=== PATIENT | male | born 1970 | race Caucasian/White ===

== ENCOUNTER → 2021-06-23 09:53 | Outpatient (CLI) | payer SELFPAY ==
--- NOTE | 2021-06-23 10:00 | CT_ITS ---
STUDY: CT CHEST WITHOUT CONTRAST REASON FOR EXAM: Male, 51 years old. DYSPNEA RADIATION DOSAGE (If Supplied By Facility): CTDIvol = ( 20.15 ) mGy, DLP = ( 712.48 ) mGycm TECHNIQUE: Transaxial imaging was performed without the administration of intravenous contrast material. Multiplanar coronal and sagittal images were reformatted. Individualized dose optimization techniques were used for this CT. COMPARISON: None. FINDINGS: Compressive atelectasis of the right more than left lower lobes. No cavitating process. No discrete pulmonary nodule in the aerated segments of the lungs. Scattered mosaic attenuation multiple pulmonary lobes with mild interstitial thickening. No pneumothorax. There are a few scattered pulmonary calcified granulomata. Heart is mildly enlarged. Calcified right hilar lymph nodes. Reactive appearing lymph nodes of the mediastinum. There is prominence of the pulmonary hilar arteries and peripheral pulmonary arteries, consistent with congestive heart failure (CHF). There is atherosclerotic tortuosity of the aortic arch and descending thoracic aorta. There are multi-level degenerative changes of the thoracic spine. Calcified granulomata of the spleen. CT/Chest without Contrast IMPRESSION: 1. CHF with interstitial edema and right larger than left pleural effusions. 2. Compressive atelectasis of the right more than left lung base. Electronically Signed: Jesus Alberto Mayorga MD ([facility]) at 18:21 EDT , Service support ,
== END ==
PROVIDERS: PCP Family Medicine; Referring Provider Internal Medicine Pulmonary Disease; Visit Provider Internal Medicine Pulmonary Disease
DX: R06.00 Dyspnea, unspecified (principal); U07.1 COVID-19; R09.02 Hypoxemia
CPT/HCPCS: 71250

== ENCOUNTER → 2021-07-26 08:27 | Outpatient (CLI) | payer SELFPAY ==
--- NOTE | 2021-07-26 09:05 | ECHOCS_ITS ---
Reason For Study: DYSPNEA Procedure This was a 2D Doppler, Color Flow transthoracic echocardiogram. The exam was of poor technical quality due to body habitus. Exam performed in department. Left Ventricle Normal LV size. The estimated ejection fraction is 35 %. There is evidence of diastolic dysfunction. Hypokinesis of the lateral wall, inferior wall and apex. Right Ventricle Normal RV size. Normal systolic function. Atria Normal left atrium. Normal right atrium. No doppler evidence for ASD. Mitral Valve There is no mitral valve stenosis. No mitral valve insufficiency. Tricuspid Valve There is no tricuspid stenosis. Trivial tricuspid valve insufficiency. Pulmonary artery systolic pressure is 60-65 mmHg. Aortic Valve Trisinus/trileaflet aortic valve. There is no aortic stenosis. No aortic valve insufficiency. Pulmonic Valve There is no pulmonic valvular stenosis. No pulmonic valve insufficiency. Great Vessels Normal aortic root. Pericardium/Pleural No pericardial effusion. Medication 22 gauge I.V. with prn adaptor inserted into left arm. Diluted definity 6.0ml given slow IV push to enhance endocardial definition. MMode/2D Measurements & Calculations LVIDd: 6.8 cm IVSd: 0.77 cm Ao root diam: 4.3 cm LVIDs: 5.5 cm LVPWd: 0.84 cm RVDd: 4.8 cm FS: 18.1 % LAV(MOD-bp): 70.7 ml LA A4 area: 24.5 cm2 LA dimension(2D): 5.3 cm LAV(MOD-bp) Indexed: 25.4 ml/m2 LAV(MOD-sp2): 67.4 ml LAV(MOD-sp4): 68.9 ml RA A4 area: 30.0 cm2 Doppler Measurements & Calculations MV E max elieser: 109.3 cm/sec Lat Peak E' Elieser: 5.9 cm/sec Med Peak E' Elieser: 7.2 cm/sec MV A max elieser: 45.4 cm/sec E/E' lat: 18.4 E/E' med: 15.3 MV E/A: 2.4 Ao V2 max: 107.9 cm/sec LV V1 max: 62.0 cm/sec TR max elieser: 377.2 cm/sec Ao max P.7 mmHg LV V1 max P.5 mmHg TR max P.9 mmHg ECHO/Echo Complete W/ Contrast Interpretation Summary The estimated ejection fraction is 35 %. Hypokinesis of the lateral wall, inferior wall and apex Pulmonary artery systolic pressure is 60-65 mmHg. Ordering Physician: Dima Coreas Referring Physician: MARTHA HANNAH Performed By: Zahida Weinstein, RDCS, RVT
[2021-07-26 09:51] LABS: Erythrocyte Sedimentation Rate 2 mm/hr (0-20)
[2021-07-26 09:59] LABS: BNP,B-Type NATRIURETIC PEPTIDE 336.6 pg/mL (0-100)
[2021-07-26 10:02] LABS: CRP < 2.90 mg/L (0.0-3.0); Rheumatoid Factor < 10.0 IU/mL (<15)
[2021-07-27 14:27] LABS: Angiotensin Convert Enzyme 22 U/L (14-82); Anti-dsDNA Ab <1 IU/mL (0-9)
== END ==
PROVIDERS: PCP Family Medicine; Visit Provider Internal Medicine Pulmonary Disease
DX: I27.20 Pulmonary hypertension, unspecified (principal); R06.00 Dyspnea, unspecified
CPT/HCPCS: 36415; 82164; 83880; 85652; 86140; 86225; 86431; 93306; Q9957; A4216; C8929; J3490

== ENCOUNTER 2024-04-14 11:16 | Emergency (ER) | payer OTHER, SELFPAY ==
[2024-04-14 11:18] VITALS: BP 146/105; PULSE 83; RESP 18; TEMP 36; O2SAT 98; BMI 43.6
--- NOTE | 2024-04-14 11:33 | CT_ITS ---
STUDY: CT ABDOMEN AND PELVIS WITHOUT CONTRAST REASON FOR EXAM: Male, 54 years old. Kidney Stone. Burning with urination. RADIATION DOSAGE (If Supplied By Facility): CTDIvol = ( 23.36 ) mGy, DLP = ( 1225.60 ) mGycm TECHNIQUE: Transaxial images were obtained from the dome of the diaphragm to the symphysis pubis without oral contrast, and without intravenous contrast. Sagittal and coronal images were reconstructed. Individualized dose optimization techniques were used for this CT. COMPARISON: Comparison is made with prior CT scan of the chest dated June 23, 2021. FINDINGS: There is evidence of a small left pleural effusion with a fibrocalcific changes at the left lung base in the posterior medial segment with evidence of bronchiectasis. This most likely represents chronic fibrosis. No significant coronary calcification is seen. There is a diffuse contour abnormality of the liver consistent with cirrhotic changes. I suspect small gallstones along the dependent portion of the gallbladder lumen. There are multiple benign calcified granulomata of the spleen. Normal pancreas. Normal bilateral adrenal glands. There is a 4 cm x 5.1 semi a cyst in the lateral aspect of the right kidney. Tiny nonobstructive left intrarenal calculi. Normal visualized stomach. Normal small intestine. Normal colon. The appendix is visualized and appears normal. There is scattered atherosclerotic calcification of the abdominal aorta, without a demonstrated aneurysm. Normal inferior vena cava. Normal retroperitoneum. The bladder is contracted. Mild degree of diffuse bladder wall thickening. Normal abdominal wall. There are degenerative changes of the visualized lumbar spine. CT/Abdomen/Pelvis without Cont IMPRESSION: Right renal cyst. Nonobstructive left intrarenal calculi. Chronic scarring at the left lung base. Nodular contour of the liver suggestive of cirrhotic change. I suspect small gallstones along the dependent portion of the gallbladder lumen. Electronically Signed: Vernon Mcclellan MD at 12:21 EDT ,
[2024-04-14] MEDS: Ondansetron 4 MG/2 ML Vial IV (11:44)
[2024-04-14] MEDS: Ketorolac 30 MG/ML Syringe IV (11:44)
--- NOTE | 2024-04-14 11:48 | EX.ED.DYSGE1 ---
HPI History of Present Illness Chief Complaint: Abd Pain Informant: patient and family Narrative Narrative: Very pleasant 54-year-old male presenting to the emergency room with a chief complaint of flank pain. Patient states that yesterday morning he developed some nausea and bloating feeling. He states that he felt some discomfort in the right flank as the day went on. He is able to go to bed and would have some. Sure he felt okay. This morning symptoms returned and he did have some emesis after eating. Found that if he laid back in his recliner it would bother him more. He denies any known history of kidney stones. He notes a history of diabetes. Patient notes his father had kidney stones. He denies any testicular pain, dysuria or frequency. He had a normal bowel movement this morning. PFSH PFS Medical History Diabetes Hypertension Home Medications ?Medication ?Instructions ?Recorded ?Last Taken ?Type ondansetron 4 mg disintegrating 4 mg PO Q6H PRN PRN Nausea #10 tabs 04/14/24 Unknown Rx tablet oxycodone-acetaminophen 5 mg-325 1 tab PO Q6H PRN pain 3 days #12 04/14/24 Unknown Rx mg tablet (Percocet) tabs tamsulosin 0.4 mg capsule (Flomax) 0.4 mg PO QHS #7 caps 04/14/24 Unknown Rx Allergy/AdvReac Type Severity Reaction Status Date / Time No Known Allergies Allergy Verified 04/14/24 11:17 Social History Smoking Status: Never smoker ROS ROS ED Constitutional Constitutional ED: Denies chills, fever(s) or weight loss Eyes Eyes: Denies change in vision or diplopia ENT ENT ED: Denies ear pain, rhinorrhea or sore throat Cardiovascular Cardiovascular: Denies chest pain, orthopnea, palpitations or racing heartbeat Respiratory/Chest Respiratory/Chest: Denies cough, dyspnea or orthopnea Gastrointestinal Gastrointestinal: Reports nausea and vomiting; Denies abdominal pain or diarrhea Genitourinary Genitourinary ED: Denies dysuria, hematuria or urinary frequency Musculoskeletal Musculoskeletal: Reports back pain; Denies arthralgias or myalgias Integumentary Denies abscess or rash Neurologic Neurologic: Denies headache(s) or weakness Psychiatric Psychiatric: Denies anxiety, depression, suicidal ideation or suicidal thoughts Endocrine Endocrinology: Denies polydipsia, polyphagia or polyuria Allergic/Immunologic Allergic/Immunologic ED: Denies mouth swelling, tongue swelling or urticaria EXAM Physical Exam Const Vital Signs: 04/14/24 11:18 04/14/24 13:17 04/14/24 13:56 Temperature 96.8 F L 96.8 F L Temperature Source Temporal Pulse Rate 83 74 74 Respiratory Rate 18 16 16 Blood Pressure 146/105 H 137/83 H 137/83 H Blood Pressure Mean 118 101 101 Pulse Ox 98 97 97 Oxygen Delivery Method Room Air Room Air Positive well nourished and well developed General Appearance ED: well developed HEENT Reports normocephalic, head/scalp atraumatic and moist mucous membranes Eyes PERRL and EOMs intact bilaterally Neck no lymphadenopathy, supple and no JVD Resp normal respiratory effort and clear to auscultation bilaterally Cardio regular rate, regular rhythm and no murmurs GI normal to inspection, nondistended, normoactive bowel sounds and non-tender Palpation: soft Back/Spine no CVA tenderness and normal ROM Extremity normal to inspection General Extremety ED: Negative for edema General Extremity: Negative for edema Neuro oriented x3 and CN's II-XII intact bilaterally Sensorium / Orientation: alert Motor Exam: strength 5/5 throughout Psych mental status grossly normal Mood & Affect: Negative for depressed or tearful Skin no rashes or lesions noted and no wounds MDM MDM MDM Narrative Medical decision making narrative: Differential diagnosis includes but not limited to UTI pyelonephritis appendicitis colitis ureterolithiasis White count 12.1 hemoglobin 12.4 platelet count is 143. Creatinine 1.78. I do not have a clear baseline for him. BUN is noted to be 31 normal sodium and potassium and anion gap 5 CO2 30. Liver lipase normal urinalysis negative. CT of the abdomen pelvis demonstrates a proximal ureteral stone on the right with some mild hydronephrosis. There is a right renal cyst. There is a possible gallstone. He is not tender in the right upper quadrant and again liver enzymes and lipase are normal. Clinically believe this to be related to his kidney stone in the proximal portion of the right ureter. I will write for some Tymlos and Percocet and Zofran. I have asked that he follow-up with urology. He is to return if worsening or concerns History & Record Review Discussion w/independent historian: Patient and Significant other Lab Data Attestation: I reviewed the patient's lab results. Labs: Laboratory Results - last 24 hr 04/14/24 04/14/24 11:47 12:11 WBC 12.1 H RBC 4.02 L Hgb 12.4 L Hct 37.8 L MCV 94.0 MCH 30.8 MCHC 32.8 RDW Std Deviation 48.2 H RDW Coeff of Jeanie 13.8 Plt Count 143 L MPV 8.6 Immature Gran % (Auto) 0.500 Neut % (Auto) 86.9 H Lymph % (Auto) 5.8 L [place] % (Auto) 5.6 Eos % (Auto) 1.0 Baso % (Auto) 0.2 Absolute Neuts (auto) 10.5 H Absolute Lymphs (auto) 0.70 L Nucleated RBC % 0 Sodium 137 Potassium 4.8 Chloride 102 Carbon Dioxide 30.0 Anion Gap 5 BUN 31 H Creatinine 1.78 H Estim Creat Clear Calc 71.20 Est GFR (MDRD) Af Amer 52 L Est GFR (MDRD) Non-Af 43 L BUN/Creatinine Ratio 17.4 Glucose 177 H Calcium 9.4 Total Bilirubin 0.70 Direct Bilirubin 0.21 AST 17 ALT 23 Alkaline Phosphatase 68 Total Protein 6.9 Albumin 3.3 Globulin 3.6 Lipase 28 Urine Color Yellow Urine Clarity Clear Urine pH 6.0 Ur Specific [place] 1.015 Urine Protein Negative Urine Glucose (UA) Normal Urine Ketones Negative Urine Occult Blood Negative Urine Nitrite Negative Urine Bilirubin Negative Urine Urobilinogen Normal Ur Leukocyte Esterase Negative Urine RBC 0 SEEN Urine WBC 0 SEEN Ur Squamous Epith Cells 0-5 SEEN Urine Bacteria 0 SEEN Urine Mucus 0 SEEN Radiography Diagnostic Testing: Clinical Impression(s) from Imaging Studies Abdomen/Pelvis CT 04/14/24 11:33 IMPRESSION: Right renal cyst. Nonobstructive left intrarenal calculi. Chronic scarring at the left lung base. Nodular contour of the liver suggestive of cirrhotic change. I suspect small gallstones along the dependent portion of the gallbladder lumen. Electronically Signed: Vernon Mcclellan MD at 12:21 EDT , ADDENDUM: 04/14/24 1324 IMPRESSION: undefined Discharge Plan Triage Chief Complaint: Abd Pain ED Provider: Qamar Harmon Dx/Rx/DC Orders Clinical Impression: Ureterolithiasis, Acute right flank pain, Elevated serum creatinine, Renal cyst Instructions: Simple Kidney Cysts, ED Kidney Stone with Pain Prescriptions: New oxycodone-acetaminophen [Percocet] 5-325 mg tablet 1 tab PO Q6H PRN (Reason: pain) 3 Days Qty: 12 0RF ondansetron 4 mg tablet,disintegrating 4 mg PO Q6H PRN PRN (Reason: Nausea) Qty: 10 0RF tamsulosin [Flomax] 0.4 mg capsule 0.4 mg PO QHS Qty: 7 0RF Primary Care Provider: Rober Palmer Referrals: Jose Maria Gomes MD [Med Staff - Active Staff] - As soon as possible (for urology evaluation of kidney stone) Rober Palmer DO [Primary Care Provider] - Print Language: Portuguese Disposition Disposition: Home, Self Care Discharge Date/Time: 04/14/24 13:57
[2024-04-14 11:56] LABS: Absolute Neutrophil Count 10.5 X10^3/uL (2.0-7.7); Basophil# 0.03 X10^3/uL; Basophil% 0.2 % (0-1); Eosinophil# 0.12 X10^3/uL; Hematocrit 37.8 % (40-54); Hemoglobin 12.4 g/dL (13.0-16.5); Lymphocyte % 5.8 % (19-41); Mean Corp Hgb Conc 32.8 g/dL (32-36); Mean Corpuscular Hgb 30.8 pg (27.0-32.0); Mean Platelet Vol. 8.6 fl (6.2-12.0); Monocyte# 0.68 X10^3/uL; Monocyte% 5.6 % (0-10); NRBC Flagged by Analyzer 0 % (0-5); Neutrophil # 10.52 X10^3/uL (2.7-7.7); Neutrophil % 86.9 % (47-70); Platelet Count 143 K/mm3 (150-450); RBC Distribution Width CV 13.8 % (11.6-14.6); RBC Distribution Width SD 48.2 fl (35.1-43.9); Red Blood Count 4.02 M/mm3 (4.6-6.2); White Blood Count 12.1 K/mm3 (4.4-11.0)
[2024-04-14 12:16] LABS: Bacteria 0 SEEN /hpf (None Seen); Mucous, Urine 0 SEEN /hpf (<or=2+); Red Blood Cells-Urine 0 SEEN /hpf (0-5); White Blood Cells 0 SEEN /hpf (0-5)
[2024-04-14 12:25] LABS: Color, Urine Yellow (Yellow); Glucose, Dipstick Normal (Normal); Ketone-Dipstick Negative (Negative); Leukocyte Esterase-Dipstick Negative /ul (Negative); Nitrite-Dipstick Negative (Negative); Occult Blood-Urine Negative /ul (Negative); Protein-Dipstick Negative (Negative); Specific Gravity, Urine 1.015 (1.002-1.030); Urine Bilirubin Dipstick Negative (Negative); Urine Clarity Clear (Clear); Urine Urobilinogen Normal (Normal)
[2024-04-14 12:27] LABS: AST(SGOT) 17 U/L (15-37); Alanine Aminotransfer ALT/SGPT 23 U/L (16-61); Albumin, Serum 3.3 g/dL (3.2-5.0); Alkaline Phosphatase 68 U/L (45-117); Anion Gap 5 (5-15); BUN 31 mg/dL (7-18); BUN/Creat Ratio 17.4 RATIO (10-20); Bilirubin, Direct 0.21 mg/dL (0.00-0.30); Calcium,Total 9.4 mg/dL (8.5-10.1); Chloride 102 mmol/L (98-107); Creatinine, Serum 1.78 mg/dL (0.70-1.30); EST Glomerular Filtration Rate 43 mL/min (>60); Est Glom Filt Rate - Afr Amer 52 mL/min (>60); Globulin 3.6 g/dL (2.2-4.2); Glucose 177 mg/dL (74-106); Lipase 28 U/L (13-75); Potassium 4.8 mmol/L (3.5-5.1); Protein, Total 6.9 g/dL (6.4-8.2); Sodium Level 137 mmol/L (136-145)
[2024-04-14 12:40] LABS: Squamous Epithelial Cells - UA 0-5 SEEN /hpf (0-5)
[2024-04-14 13:17] VITALS: BP 137/83; PULSE 74; RESP 16; O2SAT 97
[2024-04-14 13:56] VITALS: BP 137/83; PULSE 74; RESP 16; TEMP 36; O2SAT 97
== END 2024-04-14 13:57 | disposition home or self-care (01) ==
PROVIDERS: Emergency Provider Emergency Medicine; PCP Family Medicine; Visit Provider Emergency Medicine
DX: N20.1 Calculus of ureter (principal); E11.9 Type 2 diabetes mellitus without complications; I10 Essential (primary) hypertension; R79.89 Other specified abnormal findings of blood chemistry; N28.1 Cyst of kidney, acquired
CPT/HCPCS: 74176; 80048; 80076; 81001; 83690; 85025; 96374; 96375; 96376; 99283; A4216; J2405